=== PATIENT | female | born 1945 | race Caucasian/White ===

== ENCOUNTER 2017-01-19 09:02 | Day surgery (SDC) | payer MEDICARE ==
[2017-01-17 15:23] VITALS: BMI 32.1
[~2017-01-19 09:02] MED LIST: LACTATED RINGERS 1,000 ML IV SCH
[2017-01-19 09:28] VITALS: TEMP 97.5
[2017-01-19] MEDS ORDERED: LIDOCAINE 1% 20 ML VIAL (10MG/ML) FOR IV START INTRADERMA ONE (09:34)
[2017-01-19] MEDS ORDERED: LIDOCAINE 1% INJ 10MG/ML (20 ML MDV) ONE (10:02)
[2017-01-19] MEDS ORDERED: PROPOFOL 10 MG/ML 20 ML VIAL IV ONE (10:02)
[2017-01-19 10:38] VITALS: RESP 16
--- NOTE | 2017-01-19 11:00 | P.PCN ---
Date of Procedure: 01/19/17 Procedure(s) Performed: BRIEF HISTORY: Patient is a 71-year-old pleasant white female, scheduled for an elective colonoscopy as a part of evaluation of prior history of colon polyps. Last colonoscopy was in 2010. PROCEDURE PERFORMED: Colonoscopy with snare polypectomy. PREOPERATIVE DIAGNOSIS: History of colon polyps. IV sedation per Anesthesia. PROCEDURE: After informed consent was obtained, the patient, was brought into the endoscopy unit. IV conscious sedation was administered by Anesthesia under continuous monitoring. Digital rectal examination was normal. Initially the Olympus CF-160 flexible video colonoscope was then inserted in the rectum, gradually advanced into the cecum without any difficulty. Careful examination was performed as the scope was gradually being withdrawn. Ileocecal valve and the appendiceal orifice were visualized and appeared normal. Prep was excellent. Mucosa of the cecum, appeared normal. In the ascending colon there was a 1 cm polyp that was removed by snare polypectomy. The rest of the ascending colon, transverse colon, descending colon, sigmoid colon, and rectum appeared normal. Scattered diffuse diverticulosis noted. Retroflexion was performed in the rectum and no lesions were seen. The patient tolerated the procedure well. IMPRESSION: 1 cm ascending colon polyp status post polypectomy Scattered diffuse diverticulosis. RECOMMENDATIONS: Findings of this examination were discussed with the patient as well as her family. She was advised to follow with the biopsy results. If the biopsy shows a tubular adenoma she can have a repeat colonoscopy in 5 years.
[2017-01-19 11:04] VITALS: PULSE 64
[2017-01-19 11:06] VITALS: BP 110/49
--- NOTE | 2017-01-25 05:57 | CDI ---
Dear Dr. Candelaria, The Procedure Note documents IV Sedation per Anesthesia in one spot and in the Procedure paragraph, IV Conscious Sedation is documented. On the Anesthesia Record, GA/Unconscious Sedation is checked off. This is conflicting documentation that needs clarification. Please clarify if the sedation provided Denzel Tong was Conscious Sedation or GA/ Unconscious Sedation. PLEASE DOCUMENT THIS CLARIFICATION AN ADDENDUM TO THE PROCEDURE NOTE. Thank you for your time, Isabella [facility] Out[facility] Service Specialist [email or web address]
--- NOTE | 2017-01-26 11:40 | CDI ---
Dear Dr. Candelaria, The Procedure Note documents IV Sedation per Anesthesia in one spot and in the Procedure paragraph, IV Conscious Sedation is documented. On the Anesthesia Record, GA/Unconscious Sedation is checked off. This is conflicting documentation that needs clarification. Please clarify if the sedation provided ShilohLiz Ran was Conscious Sedation or GA/ Unconscious Sedation. PLEASE DOCUMENT THIS CLARIFICATION AN ADDENDUM TO THE PROCEDURE NOTE. If you have any questions regarding this query you may contact Afia Fairbanks, Bartender Manager at Tuesday thru Tuesday 8 am to 6 pm. Thank you for your time, Isabella Tay,[facility] Outpatient Preflight Inspector Katt [employer]TDK[employer]
--- NOTE | 2017-03-04 10:33 | CDI ---
Dear Dr. Candelaria, The Procedure Note documents IV Sedation per Anesthesia in one spot and in the Procedure paragraph, IV Conscious Sedation is documented. On the Anesthesia Record, GA/Unconscious Sedation is checked off. This is conflicting documentation that needs clarification. Please clarify if the sedation provided ShilohLiz Ran was Conscious Sedation or GA/ Unconscious Sedation. PLEASE DOCUMENT THIS CLARIFICATION AN ADDENDUM TO THE PROCEDURE NOTE. If you have any questions regarding this query you may contact Afia Fairbanks, Stock Driver at Tuesday thru Tuesday 8 am to 6 pm. Thank you for your time, Isabella Tay,[facility] Outpatient Enamel Dipper Katt [employer]
--- NOTE | 2017-03-09 11:40 | OP ---
ADDENDUM: DATE OF SERVICE: 01/19/2017 SURGEON: NATHALIE SALINAS DO SENIOR BENEFITS MANAGER: PREOPERATIVE DIAGNOSIS: POSTOPERATIVE DIAGNOSIS: OPERATION: ANESTHESIA: ESTIMATED BLOOD LOSS: SPECIMENS REMOVED: COMPLICATIONS: OPERATIVE FINDINGS: DESCRIPTION OF PROCEDURE: General anesthesia was utilized instead of IV conscious sedation.
== END 2017-01-19 11:32 | disposition home or self-care (01) ==
LOC: ORWHC2ENDO 09:02
PROVIDERS: ATTEND Internal Medicine Gastroenterology
DX: Z12.11 Encounter for screening for malignant neoplasm of colon (principal); K63.5 Polyp of colon; Z86.010 Personal history of colon polyps; K57.30 Diverticulosis of large intestine without perforation or abscess without bleeding; I10 Essential (primary) hypertension; E78.5 Hyperlipidemia, unspecified; M19.90 Unspecified osteoarthritis, unspecified site; Z79.899 Other long term (current) drug therapy; Z88.8 Allergy status to other drugs, medicaments and biological substances
CPT/HCPCS: 88305; 45385; J2001; J2704

== ENCOUNTER → 2017-03-25 | Outpatient (CLI) | payer MEDICARE ==
--- NOTE | 2017-03-29 14:37 | MM ---
Reason for exam: screening (asymptomatic). Last mammogram was performed 1 year ago. History: Patient is postmenopausal and has history of other cancer at age 71. Physical Findings: A clinical breast exam by your physician is recommended on an annual basis and results should be correlated with mammographic findings. MG 3D Screening Mammo W/Cad Bilateral CC and MLO view(s) were taken. Prior study comparison: March 23, 2016, bilateral MG 3d screening mammo w/cad. There are scattered fibroglandular densities. No significant changes when compared with prior studies. ASSESSMENT: Benign, BI-RAD 2 RECOMMENDATION: Routine screening mammogram of both breasts in 1 year.
== END | disposition home or self-care (01) ==
LOC: RADMAMWWP 10:57
PROVIDERS: ATTEND Family Medicine
DX: Z12.31 Encounter for screening mammogram for malignant neoplasm of breast (principal)
CPT/HCPCS: 77063; G0202

== ENCOUNTER → 2017-07-29 | Outpatient (CLI) | payer MEDICARE ==
--- NOTE | 2017-07-29 14:36 | CTL ---
EXAMINATION TYPE: CT Low Dose Lung DATE OF EXAM ORDERED: 07/29/2017 HISTORY: . Lung cancer screening CT DLP: [address] CTDI: 3.18 mGy Automated exposure control for dose reduction was used. SCREENING VISIT: Subsequent follow-up COMPARISON: 07/28/2016 TECHNIQUE: Low dose computed tomography scan was performed through the chest at 1 mm thick sections a nd reconstructed images in the coronal plane at [address] DIAGNOSTIC QUALITY: Satisfactory FINDINGS: LUNG NODULES: None. LUNGS: COPD: Severity: None Fibrosis: Severity: None Lymph nodes: No enlarged mediastinal lymph nodes by CT criteria. Other findings: None RIGHT PLEURAL SPACE: Effusion: None Calcification: None Thickening: None Pneumothorax: None LEFT PLEURAL SPACE: Effusion: None Calcification: None Thickening: None Pneumothorax: None HEART: Heart Size: Normal Coronary calcification: Mild Pericardial effusion: None OTHER FINDINGS: Upper abdomen: Cholelithiasis present. Upper abdomen is otherwise unremarkable. Bony thorax: There may be some mild pectus excavatum. Degenerative changes are within the scoliotic t horacic spine. Supraclavicular region: Normal Other: Ascending thoracic aorta at the level of main pulmonary artery is 3.3 cm. Main pulmonary arter y the bifurcation is 2.2 cm IMPRESSION: No suspicious changes to suggest primary or metastatic lung cancer. FOLLOW UP CT CHEST RECOMMENDATION: Follow-up screening in one year CT LUNG RAD: Lung-Rad 1 Negative
== END | disposition home or self-care (01) ==
LOC: RADCTMAIN 11:47
PROVIDERS: ATTEND Family Medicine
DX: Z12.2 Encounter for screening for malignant neoplasm of respiratory organs (principal); Z87.891 Personal history of nicotine dependence

== ENCOUNTER → 2018-04-14 | Outpatient (CLI) | payer MEDICARE ==
--- NOTE | 2018-04-18 08:20 | MM ---
Reason for exam: screening (asymptomatic). Last mammogram was performed 1 year and 1 month ago. History: Patient is postmenopausal and has history of other cancer at age 71. Physical Findings: A clinical breast exam by your physician is recommended on an annual basis and results should be correlated with mammographic findings. MG 3D Screening Mammo W/Cad Bilateral CC and MLO view(s) were taken. Prior study comparison: March 25, 2017, bilateral MG 3d screening mammo w/cad. March 23, 2016, bilateral MG 3d screening mammo w/cad. There are scattered fibroglandular densities. Finding: There are typically benign round calcifications in the right breast. There is a chronic nodularity in the left breast. There is no discrete abnormality. ASSESSMENT: Benign, BI-RAD 2 RECOMMENDATION: Routine screening mammogram of both breasts in 1 year.
== END | disposition home or self-care (01) ==
LOC: RADMAMWWP 11:27
PROVIDERS: ATTEND Family Medicine
DX: Z12.31 Encounter for screening mammogram for malignant neoplasm of breast (principal)
CPT/HCPCS: 77063; 77067

== ENCOUNTER → 2019-04-23 | Outpatient (CLI) | payer MEDICARE ==
--- NOTE | 2019-04-24 10:59 | MM ---
Reason for exam: screening (asymptomatic). Last mammogram was performed 1 year ago. History: Patient is postmenopausal and has history of other cancer at age 71. Physical Findings: A clinical breast exam by your physician is recommended on an annual basis and results should be correlated with mammographic findings. MG 3D Screening Mammo W/Cad Bilateral CC and MLO view(s) were taken. Prior study comparison: April 14, 2018, bilateral MG 3d screening mammo w/cad. March 25, 2017, bilateral MG 3d screening mammo w/cad. There are scattered fibroglandular densities. There is no discrete abnormality. No significant changes when compared with prior studies. ASSESSMENT: Negative, BI-RAD 1 RECOMMENDATION: Routine screening mammogram of both breasts in 1 year.
== END | disposition home or self-care (01) ==
LOC: RADMAMWWP 12:16
PROVIDERS: ATTEND Family Medicine
DX: Z12.31 Encounter for screening mammogram for malignant neoplasm of breast (principal)
CPT/HCPCS: 77063; 77067

== ENCOUNTER → 2020-04-28 | Outpatient (CLI) | payer MEDICARE ==
--- NOTE | 2020-04-29 08:25 | MM ---
Reason for exam: screening (asymptomatic). Last mammogram was performed 1 year ago. History: Patient is postmenopausal and has history of other cancer at age 71. Physical Findings: A clinical breast exam by your physician is recommended on an annual basis and results should be correlated with mammographic findings. MG 3D Screening Mammo W/Cad Bilateral CC and MLO view(s) were taken. Prior study comparison: April 23, 2019, bilateral MG 3d screening mammo w/cad. April 14, 2018, bilateral MG 3d screening mammo w/cad. There are scattered fibroglandular densities. There is no discrete abnormality. No significant changes when compared with prior studies. ASSESSMENT: Negative, BI-RAD 1 RECOMMENDATION: Routine screening mammogram of both breasts in 1 year.
== END | disposition home or self-care (01) ==
LOC: RADMAMWWP 10:17
PROVIDERS: ATTEND Family Medicine
DX: Z12.31 Encounter for screening mammogram for malignant neoplasm of breast (principal)
CPT/HCPCS: 77063; 77067

== ENCOUNTER → 2021-05-05 | Outpatient (CLI) | payer MEDICARE | END | disposition home or self-care (01) ==

== ENCOUNTER → 2021-10-09 | Outpatient (CLI) | payer MEDICARE ==
[~2021-10-09] MED LIST changes: +CASIRIVIMAB (REGN10933) (EUA) 600 MG, IMDEVIMAB (REGN10987) (EUA) 600 MG in SODIUM CHLO... IVPB NR; -LACTATED RINGERS 1,000 ML IV SCH; +SODIUM CHLORIDE 0.9% 50 ML IVPB NR; +SODIUM CHLORIDE 0.9% 500 ML 500 ML in EMPTY BAG 1 BAG IV PRN
[2021-10-09 10:32] VITALS: TEMP 97.8
[2021-10-09 10:42] VITALS: RESP 16
[2021-10-09 11:31] VITALS: BP 174/61; PULSE 49
== END ==
LOC: PROCWHC3 09:40
PROVIDERS: ATTEND Physician Assistant
DX: U07.1 COVID-19 (principal)
CPT/HCPCS: 96360; Q0244; M0243

== ENCOUNTER → 2022-05-07 | Outpatient (CLI) | payer MEDICARE ==
--- NOTE | 2022-05-10 07:55 | MM ---
Reason for Exam: Screening (asymptomatic). Last screening mammogram was performed 12 month(s) ago. Patient History: Menarche at age 14. First Full-Term at age 23. Postmenopausal. Other cancer, age 71. Hormonal Contraceptives for 1 year, 6 months. Risk Values: Slime 5 year model risk: 1.6%. NCI Lifetime model risk: 3.4%. Prior Study Comparison: 04/23/2019 Bilateral Screening Mammogram, [facility]. 04/28/2020 Bilateral Screening Mammogram, [facility]. 05/05/2021 Bilateral Screening Mammogram, [facility]. Tissue Density: There are scattered fibroglandular densities. Findings: Analyzed By CAD. There are persistent benign appearing regional linear calcifications in the left breast. There is no suspicious group of microcalcifications or new suspicious mass in either breast. Overall Assessment: Benign, BI-RAD 2 Management: Screening Mammogram of both breasts in 1 year. A clinical breast exam by your physician is recommended on an annual basis and results should be correlated with mammographic findings. Electronically signed and approved by: Fredrick Apodaca M.D.
== END | disposition home or self-care (01) ==
LOC: RADMAMWWP 12:25
PROVIDERS: ATTEND Family Medicine
DX: Z12.31 Encounter for screening mammogram for malignant neoplasm of breast (principal); R92.1 Mammographic calcification found on diagnostic imaging of breast; Z78.0 Asymptomatic menopausal state
CPT/HCPCS: 77063; 77067

== ENCOUNTER 2022-11-10 09:28 | Day surgery (SDC) | payer MEDICARE ==
[2022-11-02 14:10] VITALS: BMI 33.6
[~2022-11-10 09:28] MED LIST changes: -CASIRIVIMAB (REGN10933) (EUA) 600 MG, IMDEVIMAB (REGN10987) (EUA) 600 MG in SODIUM CHLO... IVPB NR; +LACTATED RINGERS 1,000 ML IV SCH; +LIDOCAINE 1% (10MG/ML) FOR IV START INTRADERMA PRN; -SODIUM CHLORIDE 0.9% 50 ML IVPB NR; -SODIUM CHLORIDE 0.9% 500 ML 500 ML in EMPTY BAG 1 BAG IV PRN
[2022-11-10 10:03] VITALS: RESP 16; TEMP 98.3
[2022-11-10] MEDS ORDERED: PROPOFOL 10 MG/ML 20 ML VIAL IV ONE (10:31)
--- NOTE | 2022-11-10 10:54 | P.PCN ---
Date of Procedure: 11/10/22 Procedure(s) Performed: BRIEF HISTORY: Patient is a 76-year-old pleasant white female scheduled for an elective colonoscopy as a part of evaluation of prior history of colon polyps. Last colonoscopy was 5 years ago. PROCEDURE PERFORMED: Colonoscopy. PREOPERATIVE DIAGNOSIS: History of colon polyps. IV sedation per Anesthesia. PROCEDURE: After informed consent was obtained, the patient, was brought into the endoscopy unit. IV sedation was administered by Anesthesia under continuous monitoring. Digital rectal examination was normal. Initially the Olympus CF-160 flexible video colonoscope was then inserted in the rectum, gradually advanced into the cecum with severe difficulty. Careful examination was performed as the scope was gradually being withdrawn. Ileocecal valve and the appendiceal orifice were visualized and appeared normal. Prep was excellent. Mucosa of the cecum, ascending colon, transverse colon, descending colon, sigmoid colon, and rectum appeared normal. Scattered sigmoid diverticulosis. Retroflexion was performed in the rectum and no lesions were seen. The patient tolerated the procedure well. IMPRESSION: Normal-appearing colon from rectum to cecum with no evidence of colorectal neoplasia . RECOMMENDATIONS: Findings of this examination were discussed with the patient as well as a family. She was advised to have a repeat colonoscopy in 5 years from now because of the prior history of colon polyps..
[2022-11-10] MEDS ORDERED: IV FLUID CONTINUATION 200 ML IV ONE (10:56)
[2022-11-10 11:17] VITALS: BP 151/54; PULSE 76
== END 2022-11-10 12:15 | disposition home or self-care (01) ==
LOC: ORWHC2ENDO 09:28
PROVIDERS: ATTEND Internal Medicine Gastroenterology
DX: Z12.11 Encounter for screening for malignant neoplasm of colon (principal); Z86.010 Personal history of colon polyps; K57.30 Diverticulosis of large intestine without perforation or abscess without bleeding; Z88.8 Allergy status to other drugs, medicaments and biological substances; Z79.899 Other long term (current) drug therapy
CPT/HCPCS: 45378; J2704

== ENCOUNTER → 2023-05-10 | Outpatient (CLI) | payer MEDICARE ==
--- NOTE | 2023-05-11 12:58 | MM ---
Reason for Exam: Screening (asymptomatic). Last screening mammogram was performed 12 month(s) ago. Patient History: Menarche at age 14. First Full-Term at age 23. Postmenopausal. Other cancer, age 71. Hormonal Contraceptives for 1 year, 6 months. Risk Values: Slime 5 year model risk: 1.6%. NCI Lifetime model risk: 3.2%. Prior Study Comparison: 04/28/2020 Bilateral Screening Mammogram, [facility]. 05/05/2021 Bilateral Screening Mammogram, [facility]. 05/07/2022 Bilateral MG 3D screening mammo w/cad, [facility]. Tissue Density: There are scattered fibroglandular densities. Findings: Analyzed By CAD. Pattern appears symmetrical and stable. No significant interval change is evident. Scattered benign calcifications appears stable within the bilateral breasts. No suspicious groups of microcalcifications, spiculated or lobular masses, architectural distortion or other secondary signs of malignancy are mammographically apparent. Overall Assessment: Benign, BI-RAD 2 Management: Screening Mammogram of both breasts in 1 year. A negative mammogram report should not preclude additional follow up of suspicious palpable abnormalities. Patient should continue monthly self breast exam. A clinical breast exam by your physician is recommended on an annual basis and results should be correlated with mammographic findings. Electronically signed and approved by: Heath Mullen D.O. Radiologis
== END | disposition home or self-care (01) ==
LOC: RADMAMWWP 13:54
PROVIDERS: ATTEND Family Medicine
DX: Z12.31 Encounter for screening mammogram for malignant neoplasm of breast (principal); Z78.0 Asymptomatic menopausal state
CPT/HCPCS: 77063; 77067

== ENCOUNTER → 2024-05-11 | Outpatient (CLI) | payer MEDICARE ==
--- NOTE | 2024-05-18 21:37 | MM ---
Reason for Exam: Screening (asymptomatic). Last screening mammogram was performed 12 month(s) ago. Patient History: Menarche at age 14. First Full-Term at age 23. Postmenopausal. Other cancer, age 71. Hormonal Contraceptives for 1 year, 6 months. Risk Values: Slime 5 year model risk: 1.6%. NCI Lifetime model risk: 3.0%. Prior Study Comparison: 05/05/2021 Bilateral Screening Mammogram, [facility]. 05/07/2022 Bilateral MG 3D screening mammo w/cad, [facility]. 05/10/2023 Bilateral MG 3D screening mammo w/cad, [facility]. Tissue Density: There are scattered areas of fibroglandular density. Findings: Analyzed By CAD. A few benign secretory and oil cyst calcifications are noted. There is no suspicious group of microcalcifications or new suspicious mass in either breast. Overall Assessment: Benign, BI-RAD 2 Management: Screening Mammogram of both breasts in 1 year. . Patient should continue monthly self-breast exams. A clinical breast exam by your physician is recommended on an annual basis. This exam should not preclude additional follow-up of suspicious palpable abnormalities. Note on Slime scores and lifetime risk: 1. A Slime score greater than 3% is considered moderate risk. If this is the case, consider specialist referral to assess eligibility for a risk reducing agent. 2. If overall lifetime risk for the development of breast cancer is 20% or higher, the patient may qualify for future screening with alternating mammogram and breast MRI. Electronically signed and approved by: Jose Raul Almendarez M.D. Radiologist
== END | disposition home or self-care (01) ==
LOC: RADMAMWWP 10:50
PROVIDERS: ATTEND Family Medicine
DX: Z12.31 Encounter for screening mammogram for malignant neoplasm of breast (principal); R92.323 Mammographic fibroglandular density, bilateral breasts; Z78.0 Asymptomatic menopausal state
CPT/HCPCS: 77063; 77067

== ENCOUNTER → 2025-01-11 | Outpatient (CLI) | payer MEDICARE ==
--- NOTE | 2025-01-12 19:08 | PE ---
EXAMINATION TYPE: PET CT fusion skull to thigh DATE OF EXAM: 01/11/2025 CLINICAL INDICATION:Female, 79 years old with history of esophageal ca; TECHNIQUE: Following the intravenous administration of 12.66 mCi of F-18 FDG, whole body images are performed from the skull base to the Mid thigh. Images are reviewed on the computer in the coronal, axial, and sagittal planes. Reconstructed rotating images are created on independent workstation an d reviewed on the computer. A non-contrast CT is performed in conjunction with the PET scan. Glucos e level 101 mg/dL CT DLP: 589.57 mGycm, Automated exposure control for dose reduction was used. COMPARISON: CT 07/29/2017., PET/CT None, MRI: None FINDINGS: Mediastinal SUV mean is 2.5. Hepatic parenchyma SUV mean is 3.0. SKULL BASE AND NECK: No suspicious radiotracer activity. CHEST, MEDIASTINUM, AND HILAR REGION: * Distal esophageal wall thickening with increased metabolic activity extending at least 7.0 cm in l ength max SUV 19.8 ABDOMEN AND PELVIS: * Gastrohepatic ligament lymph nodes measuring up to 15 mm Max SUV 17.0 * Paraesophageal lymph node measuring 8 mm series 3 image 103 max SUV 7.0 * Small focus in the left adrenal gland max SUV 7.1. * Lymph node near the left renal vein and max SUV 15.3 MUSCULOSKELETAL STRUCTURES: No suspicious radiotracer activity. OTHER CT: Atherosclerosis of the arterial vasculature. Mild coronary artery atherosclerosis. Mild to moderate aortic valve consultations. Cholelithiasis. Large stool burden throughout the colon. IMPRESSION: Esophageal wall thickening compatible with esophageal malignancy with one immediately adjacent lymph node upper abdominal lymph nodes in the retroperitoneum.. [facility], , 01/12/2025 7:06 PM
== END | disposition home or self-care (01) ==
LOC: RADPETMAIN 09:13
PROVIDERS: ATTEND Internal Medicine Hematology & Oncology
DX: C15.5 Malignant neoplasm of lower third of esophagus (principal); I25.10 Atherosclerotic heart disease of native coronary artery without angina pectoris; K80.20 Calculus of gallbladder without cholecystitis without obstruction
CPT/HCPCS: 78815; A9552

== ENCOUNTER 2025-02-23 14:00 | Emergency (ER) | payer MEDICARE ==
--- NOTE | 2025-02-23 14:08 | ED ---
General Adult HPI - General Chief complaint: Neuro Symptoms/Deficit Stated complaint: STROKE Time Seen by Provider: 02/23/25 14:02 Source: patient, EMS, RN notes reviewed Mode of arrival: EMS Limitations: altered mental status, physical limitation - History of Present Illness Initial comments: Patient is a 79-year-old female presenting the emergency department with concern for stroke. History is by EMS as patient is nonverbal and no family is present. Onset of symptoms was 25 minutes prior to arrival. This was witnessed by family reportedly. Patient does have history of stage III throat cancer. Unclear if patient is currently on treatment for this. Further history is limited. EMS reports right sided deficits. Last known well at 1335 - Related Data Home Medications Medication Instructions Recorded Confirmed Aspirin [Adult Low Dose Aspirin EC] 81 mg PO DAILY 01/17/17 11/10/22 Atorvastatin [Lipitor] 10 mg PO HS 01/17/17 11/10/22 Citalopram Hydrobromide 20 mg PO QAM 01/17/17 11/10/22 [Citalopram HBr] Fish Oil/Dha/Epa [Fish Oil 1,200 1 each PO DAILY 01/17/17 11/10/22 mg Fish Oil] Multivitamins, Thera [Multivitamin 1 tab PO DAILY 01/17/17 11/10/22 (formulary)] Retinavites 1 dose PO DAILY 01/17/17 11/10/22 atenoloL 25 mg PO BID 01/17/17 11/10/22 hydroCHLOROthiazide [Hydrodiuril] 25 mg PO DAILY 01/17/17 11/10/22 lisinopriL [Zestril] 5 mg PO QAM 01/17/17 11/10/22 Calcium Carbonate/Vitamin D3 1 each PO DAILY 11/02/22 11/10/22 [Calcium 600 mg-D3 20 mcg (800 unit)] Allergies Allergy/AdvReac Type Severity Reaction Status Date / Time prednisone AdvReac Confusion,a Verified 11/10/22 09:52 nxiety Review of Systems ROS Statement: Those systems with pertinent positive or pertinent negative responses have been documented in the HPI. ROS Other: All systems not noted in ROS Statement are negative. Limitations: ROS unobtainable due to patients medical condition Neurological: Reports: as per HPI, weakness Past Medical History Past Medical History: Eye Disorder, Hyperlipidemia, Hypertension, Osteoarthritis (OA) Additional Past Medical History / Comment(s): mac. deg. wilver eyes. Stage III throat cancer History of Any Multi-Drug Resistant Organisms: None Reported Additional Past Surgical History / Comment(s): patent ductus as , colonoscopy,catarcts Past Anesthesia/Blood Transfusion Reactions: No Reported Reaction, Motion Sickness Additional Past Anesthesia/Blood Transfusion Reaction / Comment(s): vertigo,no problems w/ blood transfusion at age 4. does not like IVs,requesting lidocaine for IV starts Smoking Status: Former smoker - Past Family History Mother Family Medical History: No Reported History General Exam Limitations: altered mental status, physical limitation General appearance: alert Head exam: Present: atraumatic Eye exam: Absent: EOMI (Patient will not track to the right side) ENT exam: Present: normal oropharynx Neck exam: Present: normal inspection. Absent: tenderness, meningismus Respiratory exam: Present: normal lung sounds bilaterally Cardiovascular Exam: Present: regular rate, normal rhythm GI/Abdominal exam: Present: soft. Absent: tenderness Extremities exam: Present: normal inspection Neurological exam: Present: alert, altered Expanded Neurological exam: Present: other (Nonverbal. Does not follow commands. Right sided flaccid weakness. Right sided neglect) Speech: Present: total aphasia Cranial nerves: EOM's Intact: Abnormal Right (Will not move eyes towards the right), Facial Palsy with Forehead Movement: Abnormal Right (Right-sided facial weakness) Motor strength exam: RUE: 0, LUE: 5, RLE: 0, LLE: 3 Eye Response: (4) open spontaneously Motor Response: (4) withdraws to pain Verbal Response: (1) no verbal response Psychiatric exam: Present: flat affect (Nonverbal) Skin exam: Present: normal color Course Vital Signs 02/23/25 02/23/25 14:02 14:30 Temperature 98 F Pulse Rate 85 58 L Respiratory 16 20 Rate Blood Pressure 138/87 131/50 O2 Sat by Pulse 96 96 Oximetry EKG Findings - EKG Results: EKG: interpreted by ERMD (Inferior Q waves), sinus rhythm, normal axis, normal ST/T EKG shows: bradycardia Medical Decision Making - Medical Decision Making 1423. Case was discussed with neurology Dr. Alvarado who states patient is a candidate for tenecteplase. Discussed with family and they are unclear whether or not they wanted provided at this time. does confirm onset. is trying to get in touch with family. Updated NIH per nursing staff is 26. 1444. Case was again discussed with Dr. alvarado who states if family wants everything done patient can still be a candidate for tenecteplase. He did look at CTA and found large clot and states patient can also be a candidate for thrombectomy. I did discuss everything again with the family, . does consent for both. He would like patient to have the best possible chance. He is made aware of patient being high risk including increased risk for bleeding and intracranial hemorrhage as well as . He is also aware of patient's poor prognosis. 1450 Case again discussed with Dr. alvarado and patient will be transferred to [facility] pt. sent in by a medical professional or institution (, PA, CELL CLEANER, urgent care, hospital, or retirement...) When possible be specific @ -No Did you speak to anyone other than the patient for history (EMS, parent, family, police, friend...)? What history was obtained from this source @ -History taken by EMS as patient is nonverbal. Additional history taken by family member, who states patient is high functioning. He states patient is on chemotherapy and radiation for metastatic throat cancer Did you review nursing and triage notes (agree or disagree)? Why? @ -I reviewed and agree with nursing and triage notes Were old charts reviewed (outside hosp., previous admission, EMS record, old EKG, old radiological studies, urgent care reports/EKG's, retirement records)? Report findings @ -No old charts were reviewed Differential Diagnosis (chest pain, altered mental status, abdominal pain women, abdominal pain men, vaginal bleeding, weakness, fever, dyspnea, syncope, headache, dizziness, GI bleed, back pain, seizure, CVA, palpatations, mental health, musculoskeletal)? @ -Differential Weakness: Hypoglycemia, shock, sepsis, hyponatremia, anemia, infection, NJ, ETOH, adverse medicine reaction, overdose, stroke, this is not meant to be an all-inclusive list. EKG interpreted by me (3pts min.). @ -As above X-rays interpreted by me (1pt min.). @ -None done CT interpreted by me (1pt min.). @ -CT scan of the brain without acute abnormality U/S interpreted by me (1pt. min.). @ -None done What testing was considered but not performed or refused? (CT, X-rays, U/S, labs)? Why? @ -None What meds were considered but not given or refused? Why? @ -None Did you discuss the management of the patient with other professionals (professionals i.e. , PA, CELL CLEANER, lab, RT, psych nurse, social organization professor, potato grader, teacher, first officer, social work case manager)? Give summary @ -See above Was smoking cessation discussed for >3mins.? @ -No Was critical care preformed (if so, how long)? @ -45 minutes critical care time Were there social determinants of health that impacted care today? How? (Homelessness, low income, unemployed, alcoholism, drug addiction, transportation, low edu. Level, literacy, decrease access to med. care, long-term, rehab)? @ -No Was there de-escalation of care discussed even if they declined (Discuss DNR or withdrawal of care, Hospice)? DNR status @ -No What co-morbidities impacted this encounter? (DM, HTN, Smoking, COPD, CAD, Cancer, CVA, ARF, Chemo, Hep., AIDS, mental health diagnosis, sleep apnea, morbid obesity)? @ -Throat cancer Was patient admitted / discharged? Hospital course, mention meds given and route, prescriptions, significant lab abnormalities, going to OR and other pertinent info. @ -Patient presents with sudden onset large stroke NIH 26. Right sided de ficits. Nonverbal. Right-sided neglect. After several discussions with family they would like patient to have tenecteplase and this was provided. Patient will be transferred to [facility] for consideration for thrombectomy. Family updated. Undiagnosed new problem with uncertain prognosis? @ -No Drug Therapy requiring intensive monitoring for toxicity (Heparin, Nitro, Insulin, Cardizem)? @ -Tenecteplase Were any procedures done? @ -No Diagnosis/symptom? @ -CVA Acute, or Chronic, or Acute on Chronic? @ -Acute Uncomplicated (without systemic symptoms) or Complicated (systemic symptoms)? @ -Default Side effects of treatment? @ -No Exacerbation, Progression, or Severe Exacerbation? @ -No Poses a threat to life or bodily function? How? (Chest pain, USA, NJ, pneumonia, PE, COPD, DKA, ARF, appy, cholecystitis, CVA, Diverticulitis, Homicidal, Suicidal, threat to staff... and all critical care pts) @ -Threat to neurological function Case also discussed with Dr. Benton at [facility] who will accept transfer - Lab Data Result diagrams: 02/23/25 14:01 02/23/25 14:01 Lab Results 02/23/25 02/23/25 Range/Units 14:01 14:01 WBC 13.60 H (4.50-10.00) 10*3/uL RBC 3.87 L (4.10-5.20) 10*6/uL Hgb 12.4 (12.0-15.0) g/dL Hct 35.3 L (37.2-46.3) % MCV 91.2 (80.0-97.0) fL MCH 32.0 (27.0-32.0) pg MCHC 35.1 (32.0-37.0) g/dL Plt Count 248 (140-440) 10*3/uL MPV 9.9 (9.5-12.2) fL Immature Gran % (Auto) 0.7 % Neutrophils % 92.7 % Lymphocytes % 2.6 % Monocytes % 3.8 % Eosinophils % 0.1 % Basophils % 0.1 % Immature Gran # 0.09 H (0.00-0.04) 10*3/uL Neutrophils # 12.62 H (1.80-7.70) 10*3/uL Lymphocytes # 0.35 L (0.90-5.00) 10*3/uL Monocytes # 0.51 (0.20-1.00) 10*3/uL Eosinophils # 0.01 L (0.04-0.35) 10*3/uL Basophils # 0.02 (0.00-0.10) 10*3/uL Sodium 123 L (137-145) mmol/L Potassium 4.5 (3.5-5.1) mmol/L Chloride 91 L (98-107) mmol/L Carbon Dioxide 24 (22-30) mmol/L Anion Gap 8 mmol/L BUN 32 H (7-17) mg/dL Creatinine 0.59 (0.52-1.04) mg/dL Est GFR (CKD-EPI)AfAm >90 (>60 ml/min/1.73 sqM) Est GFR (CKD-EPI)NonAf 88 (>60 ml/min/1.73 sqM) Glucose 167 H (74-99) mg/dL Calcium 8.8 (8.4-10.2) mg/dL Total Bilirubin 0.8 (0.2-1.3) mg/dL AST 44 H (14-36) U/L ALT 55 H (4-34) U/L Alkaline Phosphatase 63 (38-126) U/L Creatine Kinase <20 L (30-135) U/L Total Protein 6.4 (6.3-8.2) g/dL Albumin 3.8 (3.5-5.0) g/dL Critical Care Time Critical Care Time: Yes Total Critical Care Time: 45 Disposition Clinical Impression: Cerebrovascular accident (CVA) Disposition: OTHER INSTITUTION NOT DEFINED Condition: Critical Is patient prescribed a controlled substance at d/c from ED?: No Referrals: None,Stated [REFERRING] - 1-2 days Time of Disposition: 14:53 - Out of Hospital Transfer - Req. Specs Out of Hospital Transfer - Requested Specifics: Other Emergency Center
--- NOTE | 2025-02-23 14:16 | CT ---
EXAMINATION TYPE: CT brain wo con DATE OF EXAM: 02/23/2025 COMPARISON: CLINICAL INDICATION: Female, 79 years old with history of Neuro deficit, acute, stroke suspected; PHH , CODE STROKE, right side weakness, neuro deficit TECHNIQUE: CT scan of the head is performed without contrast. CT DLP: 1127.[address] CTDI: mGy Automated exposure control for dose reduction was used. FINDINGS: There is no acute intracranial hemorrhage or midline shift identified. There is diffuse v entricular and sulcal prominence consistent with diffuse age-related cerebral atrophy. There is low- attenuation in the periventricular white matter consistent with chronic small vessel ischemic change. The globes are intact and the visualized sinuses are clear. IMPRESSION: No acute intracranial hemorrhage or midline shift. There is diffuse age-related cerebra l atrophy and chronic small vessel ischemic change noted. [facility], , 02/23/2025 2:14 PM
[2025-02-23 14:20] LABS: Basophils # (A) 0.02 10*3/uL (0.00-0.10); Basophils % (A) 0.1 %; Eosinophils # (A) 0.01 10*3/uL (0.04-0.35); Eosinophils % (A) 0.1 %; HCT 35.3 % (37.2-46.3); HGB 12.4 g/dL (12.0-15.0); Lymphocytes # (A) 0.35 10*3/uL (0.90-5.00); Lymphocytes % (A) 2.6 %; MCHC 35.1 g/dL (32.0-37.0); MCV 91.2 fL (80.0-97.0); Mean Platelet Volume 9.9 fL (9.5-12.2); Monocytes # (A) 0.51 10*3/uL (0.20-1.00); Monocytes % (A) 3.8 %; Neutrophils # (A) 12.62 10*3/uL (1.80-7.70); Neutrophils % (A) 92.7 %; Platelet Count 248 10*3/uL (140-440); RBC 3.87 10*6/uL (4.10-5.20); RDW 13.2 % (11.5-14.5)
[2025-02-23 14:24] VITALS: TEMP 98
[2025-02-23 14:30] LABS: ALT 55 U/L (4-34); AST 44 U/L (14-36); African American GFR (CKD) >90 (>60 ml/min/1.73 sqM); Albumin 3.8 g/dL (3.5-5.0); Alkaline Phosphatase 63 U/L (38-126); Anion Gap 8 mmol/L; Blood Urea Nitrogen 32 mg/dL (7-17); Calcium 8.8 mg/dL (8.4-10.2); Carbon Dioxide 24 mmol/L (22-30); Chloride 91 mmol/L (98-107); Creatine Kinase <20 U/L (30-135); Glucose 167 mg/dL (74-99); Non-African American GFR(CKD) 88 (>60 ml/min/1.73 sqM); Potassium 4.5 mmol/L (3.5-5.1); Sodium 123 mmol/L (137-145); Total Bilirubin 0.8 mg/dL (0.2-1.3); Total Protein 6.4 g/dL (6.3-8.2)
--- NOTE | 2025-02-23 14:46 | CT ---
EXAMINATION TYPE: CT angio head neck DATE OF EXAM: 02/23/2025 2:36 PM COMPARISON: None. CLINICAL INDICATION: Female, 79 years old with history of cva, Right side weakness, neuro deficit, TECHNIQUE: Axially acquired helical CT Angiogram of the Neck was obtained with and without contrast. Axial images are supplemented with coronal and sagittal MIP reconstructions. 3D reconstructions were also performed and were post-processed at an independent workstation. Estimated carotid stenosis was calculated using the NASCET criteria. Contrast CTA of the [place] was performed 3-D recons truction imaging obtained at a separate workstation. IV CONTRAST: without and with IV Contrast, patient injected with 65 mL of Isovue 370. (None if empty) CT DLP: 520.3 mGycm, Automated exposure control for dose reduction was used. FINDINGS: NECK: Right carotid system: Mild plaque is seen of the right common carotid artery. There is mild plaque a lso noted at the carotid bulb and proximal ICA. No significant diameter reduction. ECA is patent. Right vertebral artery appears unremarkable. Left carotid system: Mild plaque is seen of the left common carotid artery. There is high-grade steno sis with occlusion distal left ICA and intracranial ICA component. BRAIN: Vertebrobasilar system is patent. Nonvisualization intracranial component of the left ICA with dimin ished perfusion of left MCA and distal left MCA branches. I do not see evidence for sizable aneurysm or vascular malformation. Please note MRI provides greater sensitivity and specificity. Visualized brain appears grossly unremarkable. IMPRESSION: 1. There is high-grade stenosis with occlusion distal left ICA and intracranial ICA component. Dimin ished perfusion of left MCA and distal left MCA branches. [facility], , 02/23/2025 2:44 PM
--- NOTE | 2025-02-23 14:47 | XR ---
EXAMINATION TYPE: XR chest 1V portable DATE OF EXAM: 02/23/2025 2:38 PM COMPARISON: 06/11/2014 CLINICAL INDICATION: Female, 79 years old with history of altered mental status, TECHNIQUE: XR chest 1V portable views of the chest are obtained. FINDINGS: Demonstrated are scattered senescent parenchymal change. There is no evidence for focal infiltrate. The heart is stable. Hilar and mediastinal structures are within normal limits. Degenerative changes are seen of the dorsal spine. IMPRESSION: 1. Chronic changes without evidence for acute pulmonary disease. [facility], , 02/23/2025 2:45 PM
[2025-02-23] MEDS: T.ENECTEPLASE 5 MG/ML VIAL IVP STA (14:54)
[2025-02-23 15:06] VITALS: RESP 18
[2025-02-23] MEDS: SODIUM CHLORIDE 0.9% 500 ML 500 ML IV STA (15:09)
[2025-02-23] MEDS: SODIUM CHLORIDE 0.9% 1,000 ML IV STA (15:22)
[2025-02-23 15:24] VITALS: BP 125/55; PULSE 56
== END 2025-02-23 15:25 | disposition other institution (70) ==
LOC: EC 14:00
DX: I63.9 Cerebral infarction, unspecified (principal); E87.1 Hypo-osmolality and hyponatremia; R29.726 NIHSS score 26; Z88.8 Allergy status to other drugs, medicaments and biological substances; Z85.21 Personal history of malignant neoplasm of larynx; Z87.891 Personal history of nicotine dependence
CPT/HCPCS: 36415; 93005; 80053; 82550; 85025; 71045; 70496; 70450; 70498; 99291; 37195; J3101; Q9967